=== PATIENT | female | born 1975 | race Caucasian/White ===

== ENCOUNTER 2016-07-24 10:27 | Emergency (ER) | payer SELFPAY ==
[2016-07-24 10:28] VITALS: BMI 37.5
[2016-07-24 10:50] VITALS: TEMP 98.7
[2016-07-24] MEDS ORDERED: MORPHINE 4 MG/ML INJECTION IV ONE (11:32)
[2016-07-24] MEDS ORDERED: ONDANSETRON HCL 4 MG/2 ML VIAL IV ONE (11:32)
[2016-07-24] MEDS ORDERED: NS 1,000 ML IV ONE (11:32)
--- NOTE | 2016-07-24 11:35 | EDPRACDOC ---
- General Information Chief Complaint: Abdominal Pain Stated Complaint: UPPER ABD PAIN Time Seen by Provider: 07/24/16 11:21 Information Source: Patient Home Medications: Home Medications Clonazepam [Klonopin] 1 mg PO QHS PRN 05/20/16 Omeprazole Magnesium [Prilosec Otc] 20 mg PO DAILY 05/20/16 Ondansetron [Zofran Odt] 4 mg PO TID PRN #10 tab.rapdis 07/24/16 Oxycodone Immediate Release [Oxy-Ir] 5 mg PO Q6H PRN #10 tab 07/24/16 Allergies/Adverse Reactions: Allergies Allergy/AdvReac Type Severity Reaction Status Date / Time naproxen Allergy See Verified 06/26/16 09:05 Comments - History of Present Illness Onset: 5 days HPI: Pt with hx of viola 4 weeks ago c/o sudden onset RUQ pain and nausea x 5 days. Pain is constant, sometimes sharp, sometimes dull, unrelated to eating, better with lying down, worse with movement. Denies fever, cp, sob, V/D, change in urine or BM. Med hx = carpal tunnel. Surgical hx = viola, hysterectomy for cervical CA. Pain Location: Reports: RUQ Pain Context: Reports: Spontaneous Pain Severity: Severe Pain Quality: Reports: Aching, Sharp Pain Radiation: Reports: No Radiation Last Menstrual Period: hysterectomy : No Adult Abdominal History: Reports: Abdominal Surgery (viola). Denies: Urolithiasis, Bowel Obstruction Female Abdominal History: Reports: Abdominal Surgery (hysterectomy). Denies: Urolithiasis Modifying Factors: improves with: Lying Still (better), Movement (worse) Female Associated Signs & Symptoms: Reports: Nausea Oral Intake: Decreased Urinary Output: Normal ED Past Medical History - History Reviewed Yes Nurses notes reviewed and agree except as marked - Patient Medical History Respiratory History: Denies: Asthma GI/ History: Reports: Gastroesophageal Reflux Psychological History: Reports: Anxiety. Denies: Depression Surgical History: Reports: Cholecystectomy (06/26/16), Hysterectomy - Family Medical History Reports: Hypertension (GP), Cancer (MOTHER BREAST CA, AUNT CERVICAL AND COLON, UNCLE COLON CA), Stroke (MATERNAL GM), Cardiac Disorders (MATERNAL GP). Denies : Diabetes - Social Medical History Smoking Status: Heavy tobacco smoker (5 or more cigarettes/day or daily pipe/ cigar) EDM Review of Systems - Review of Systems ROS Negative Except as Marked: Yes All systems reviewed and were negative except as marked Gastrointestinal: Nausea, Pain - Physical Exam Constitutional: Alert Oriented to: Time, Person, Place Last recorded Vital Signs: Last Vital Signs Temp 98.7 F 07/24/16 10:47 Pulse 58 L 07/24/16 13:00 Resp 18 07/24/16 13:00 BP 105/58 L 07/24/16 13:00 Pulse Ox 96 07/24/16 13:00 Oxygen Pulse Oxygen Saturation 96 O2 Device Room Air Oxygen Flow Rate Fraction of Inspired Oxygen ( FIO2) - HEENT Head: Normal Eye Exam: negative: Conjunctival Injection, Scleral Icterus Oropharynx: negative: Drooling TMJ: Normal Nose: No Symptoms Reported Neck: Normal - Respiratory/Cardiovascular Respiratory: Normal - CTA Cardiovascular: Normal - GI Auscultation: Normal Palpation: Normal Tenderness: Moderate, RUQ - Musculoskeletal Back: Normal Extremities: Normal - Integumentary Skin: Normal - Neurologic Mood Description: Normal Thought: Coherent Other Exam Findings: Post op incisions clean and dry, well healed. No erythema, no swelling. - Results 07/24/16 11:05 07/24/16 11:05 WBC 10.4 xk/uL (3.8-10.8) 07/24/16 11:05 RBC 5.29 xM/uL (4.20-5.40) 07/24/16 11:05 Hgb 16.8 g/dL (12.0-16.0) H 07/24/16 11:05 Hct 47.9 % (36-47) H 07/24/16 11:05 MCV 91 fL (81-99) 07/24/16 11:05 MCH 31.7 pg (27-32) 07/24/16 11:05 MCHC 35.0 g/dl (33-36) 07/24/16 11:05 RDW 12.7 % (11.5-14.5) 07/24/16 11:05 Plt Count 285 xk/uL (130-400) 07/24/16 11:05 MPV 8.1 fL (7.4-10.4) 07/24/16 11:05 Neut % (Auto) 48.5 % (45-76) 07/24/16 11:05 Lymph % (Auto) 39.4 % (17-44) 07/24/16 11:05 Mclean % (Auto) 6.0 % (3-10) 07/24/16 11:05 Eos % (Auto) 5.2 % (0-5) H 07/24/16 11:05 Baso % (Auto) 0.9 % (0-2) 07/24/16 11:05 Absolute Neuts (auto) 4.99 xk/uL (1.7-8.2) 07/24/16 11:05 Absolute Lymphs (auto) 4.06 xk/uL (0.65-4.75) 07/24/16 11:05 Sodium 142 mEq/L (137-146) 07/24/16 11:05 Potassium 4.1 mEq/L (3.5-5.1) 07/24/16 11:05 Chloride 106 mEq/L (98-107) 07/24/16 11:05 Carbon Dioxide 26 mMOL/L (22-33) 07/24/16 11:05 Anion Gap 14 mEq/L (8-16) 07/24/16 11:05 BUN 12 MG/DL (7-17) 07/24/16 11:05 Creatinine 0.70 MG/DL (0.52-1.04) 07/24/16 11:05 Estimated GFR (MDRD) > 60 mL/min (>=60) 07/24/16 11:05 Glucose 91 MG/DL (70-99) 07/24/16 11:05 Calculated Osmolality 273 MOs/Kg (270-290) 07/24/16 11:05 Calcium 9.8 MG/DL (8.4-10.2) 07/24/16 11:05 Total Bilirubin 0.8 MG/DL (0.2-1.3) 07/24/16 11:05 AST 24 IU/L (14-36) 07/24/16 11:05 ALT 22 IU/L (9-52) 07/24/16 11:05 Alkaline Phosphatase 77 IU/L (38-126) 07/24/16 11:05 Total Protein 8.5 G/DL (6.3-8.2) H 07/24/16 11:05 Albumin 4.5 G/DL (3.5-5.0) 07/24/16 11:05 Lipase 128 U/L (23-300) 07/24/16 11:05 Urine Color Yellow 07/24/16 11:00 Urine Clarity Sl cldy 07/24/16 11:00 Urine pH 6.0 (5.0-8.0) 07/24/16 11:00 Ur Specific [place] 1.025 (1.003-1.035) 07/24/16 11:00 Urine Protein Neg (NEG/TRACE) 07/24/16 11:00 Urine Glucose (UA) Neg (NEGATIVE) 07/24/16 11:00 Urine Ketones Neg (NEGATIVE) 07/24/16 11:00 Urine Occult Blood 1+ (NEG/TRACE) H 07/24/16 11:00 Urine Nitrite Neg (NEGATIVE) 07/24/16 11:00 Urine Bilirubin Neg (NEGATIVE) 07/24/16 11:00 Urine Urobilinogen <2.0 MG/DL (0-1) 07/24/16 11:00 Ur Leukocyte Esterase Neg (NEGATIVE) 07/24/16 11:00 Urine RBC 2-5 (0-5) 07/24/16 11:00 Urine WBC 2-5 (0-5) 07/24/16 11:00 Ur Epithelial Cells 2+ 07/24/16 11:00 Urine Bacteria Few (NEG/FEW) 07/24/16 11:00 Urine Mucus Sm amt (NEG/OCC) 07/24/16 11:00 Lab Results 07/24/16 07/24/16 07/24/16 11:05 11:05 11:00 WBC 10.4 RBC 5.29 Hgb 16.8 H Hct 47.9 H MCV 91 MCH 31.7 MCHC 35.0 RDW 12.7 Plt Count 285 MPV 8.1 Neut % (Auto) 48.5 Lymph % (Auto) 39.4 Mclean % (Auto) 6.0 Eos % (Auto) 5.2 H Baso % (Auto) 0.9 Absolute Neuts (auto) 4.99 Absolute Lymphs (auto) 4.06 Sodium 142 Potassium 4.1 Chloride 106 Carbon Dioxide 26 Anion Gap 14 BUN 12 Creatinine 0.70 Estimated GFR (MDRD) > 60 Glucose 91 Calculated Osmolality 273 Calcium 9.8 Total Bilirubin 0.8 AST 24 ALT 22 Alkaline Phosphatase 77 Total Protein 8.5 H Albumin 4.5 Lipase 128 Urine Color Yellow Urine Clarity Sl cldy Urine pH 6.0 Ur Specific [place] 1.025 Urine Protein Neg Urine Glucose (UA) Neg Urine Ketones Neg Urine Occult Blood 1+ H Urine Nitrite Neg Urine Bilirubin Neg Urine Urobilinogen <2.0 Ur Leukocyte Esterase Neg Urine RBC 2-5 Urine WBC 2-5 Ur Epithelial Cells 2+ Urine Bacteria Few Urine Mucus Sm amt Decision Time to Discharge: 12:20 - Departure Disposition: Home Condition: Stable Final Diagnosis: Right sided abdominal pain Instructions: Acute Abdominal Pain (ED), Non-pharmacological Pain Management Therapies for Adults (GEN), Abdominal Pain (ED) Education/Counseling Given To: Patient Education/Counseling Given Regarding: Diagnosis, Treatment, Prognosis, Follow Up Referrals: Leydi Sainz MD [Primary Care Provider] - One Week Prescriptions: Ondansetron [Zofran Odt] 4 mg PO TID PRN #10 tab.rapdis PRN Reason: Nausea/Vomiting Oxycodone Immediate Release [Oxy-Ir] 5 mg PO Q6H PRN #10 tab PRN Reason: Pain Additional Instructions: Follow up with DR Neri and primary care provider. Return to ED for any new or worsening symptoms.
[2016-07-24 11:46] LABS: AUTOMATED BASOPHIL 0.9 % (0-2); AUTOMATED EOSINOPHIL 5.2 % (0-5); AUTOMATED LYMPH 39.4 % (17-44); AUTOMATED NEUTROPHIL 48.5 % (45-76); MPV 8.1 fL (7.4-10.4)
[2016-07-24 11:58] LABS: BLOOD UREA NITROGEN 12 MG/DL (7-17); CALCIUM 9.8 MG/DL (8.4-10.2); CALCULATED OSMOLALITY 273 MOs/Kg (270-290); CHLORIDE 106 mEq/L (98-107); GLUCOSE 91 MG/DL (70-99); SODIUM LEVEL 142 mEq/L (137-146); TOTAL PROTEIN 8.5 G/DL (6.3-8.2)
[2016-07-24 12:11] LABS: LEUKOCYTES/URINE NEG (NEGATIVE); NITRITE/URINE NEG (NEGATIVE); URINE OCCULT BLOOD 1+ (NEG/TRACE)
[2016-07-24 13:04] VITALS: BP 105/58; PULSE 58
== END 2016-07-24 13:00 | disposition home or self-care (01) ==
LOC: ED 10:27
DX: R10.11 Right upper quadrant pain (principal); K21.9 Gastro-esophageal reflux disease without esophagitis; F41.9 Anxiety disorder, unspecified; F17.200 Nicotine dependence, unspecified, uncomplicated; Z79.899 Other long term (current) drug therapy
CPT/HCPCS: 36415; 80053; 81001; 83690; 85025; 96361; 96374; 96375; 99284; J2270; J2405